=== PATIENT | male | born 1950 | race Caucasian/White ===

== ENCOUNTER 2017-04-03 11:07 | Emergency (ER) | payer MEDICARE ==
--- NOTE | ~2017-04-03 | CT4 ---
[facility] A Service of [facility] RADIOLOGY TEXT RESULTS PATIENT: ALICIA WALTON LOCATION: [facility] : 46 UNIT #: [id number] AGE: [address]: Rey Muñoz MD SEX: M ORDER DR: [id number] [place] [id number] E MR#: [id number] Acc #: [id number] NAME: ALICIA WALTON. : 1950 SEX: M STUDY DATE/TIME: 04/03/2017 13:42 UNIT: SED ROOM: STUDY DESCRIPTION: CT Abd and Pelv Wo Cont Attending Physician: Rey Muñoz M.D. Ordering Physician: Rey Muñoz M.D. Primary Care Physician: Noemi Flores M.D. MEDICAL IMAGING REPORT This report is preliminary unless electronic signature is present. EXAM CT abdomen and pelvis without contrast. INDICATIONS Nausea and abdominal pain since last night. TECHNIQUE CT of the abdomen and pelvis was performed without contrast. Coronal and sagittal reformatted images were obtained. This CT exam was performed with one or more of the following radiation dose reduction techniques: automatic exposure control, adjustment of mA and/or kV according to patient size, and iterative reconstruction. COMPARISON No comparisons are available. FINDINGS There is minimal atelectasis/scar in the lung bases. The liver, gallbladder, and spleen are unremarkable. Tiny nonobstructing stone, upper pole, left kidney. Cyst in the left kidney. The right kidney demonstrates moderate hydronephrosis. Large exophytic cyst arising from the right kidney. Smaller intrarenal cyst, upper pole, right kidney. 5-mm obstructing stone, mid/distal right ureter. The adrenal glands are unremarkable. Pancreas is unremarkable. PELVIS: There are scattered diverticula in the colon. The appendix is normal. Urinary bladder is unremarkable. Bone windows are unremarkable. IMPRESSION 5-mm obstructing stone in the mid/distal right ureter with moderate right-sided hydronephrosis. [facility] A Service of [facility] RADIOLOGY TEXT RESULTS PATIENT: ALICIA WALTON LOCATION: SED : 46 UNIT #: [id number] AGE: [address]: Rey Muñoz MD SEX: M ORDER DR: Dictated by... Brayan Graves M.D. THIS IS AN ELECTRONICALLY VERIFIED REPORT Brayan Graves M.D. at 04/04/2017 7:17 AM XIN/yamini TD: 04/03/2017 18:01 JOB #: [id number] MEDICAL IMAGING REPORT Page 1 of 1
[~2017-04-03 11:07] MED LIST: ASA; ASPIRIN PO; ASPIRIN81 M2 PO; CIPRO PO; FISH OIL 1,2001 EAC4 PO; MULTIPLE VITAMI1 T11 PO; NIACIN500 M2 PO; PERCOCET5/325; PYRIDIUM PO; SIMCOR 500-21 BOTTLE; SIMCOR 500-21 BOTTLE PO; SIMCOR PO; SIMVASTATIN20 MG PO; ZETIA PO
[2017-04-03 11:50] LABS: URINE APPEARANCE CLEAR; URINE BILIRUBIN NEG (NEG); URINE COLOR YELLOW; URINE GLUCOSE NEG (NORM); URINE KETONE 1+ (NEG); URINE LEUKOCYTE ESTERASE NEG (NEG); URINE NITRATE NEG (NEG); URINE PH 7.5 (5-8); URINE SPECIFIC GRAVITY 1.025 (1.003-1.035); URINE UROBILINOGEN 0.2 MG/DL (NORM)
[2017-04-03 11:52] LABS: BASOPHIL% 0.2 % (0-2.5); HEMATOCRIT 47.2 % (38.0-50.0); HEMOGLOBIN 15.8 gm/dL (13.0-16.0); LYMPHOCYTE# 0.8 X10e3 (1.0-3.5); LYMPHOCYTE% 9.6 % (17.0-45.0); MEAN CELL VOLUME 89.2 FL (83-96); MEAN CORPUSCULAR HEMOGLOBIN 29.8 PG (28-34); MEAN CORPUSCULAR HGB CONC 33.4 g/dL (30-36); MEAN PLATELET VOLUME 8.6 FL (6.5-11.5); MONOCYTE# 0.5 X10e3 (0-1.0); MONOCYTE% 6.1 % (3.0-12.0); NEUTROPHIL# 7.1 X10e3 (1.5-7.1); NEUTROPHIL% 84.1 % (40-75); PLATELET COUNT 154 X10e3 (140-420); RED CELL DISTRIBUTION WIDTH 13.4 % (11.0-15.5); WHITE BLOOD COUNT 8.4 X10e3 (4.0-10.5)
[2017-04-03 11:53] LABS: MICRO INDICATED? NO; URINE BLOOD NEG (NEG); URINE PROTEIN NEG (NEG)
[2017-04-03 11:53] LABS: DIFF IND NO
[2017-04-03 12:10] LABS: ALBUMIN SERUM 4.5 g/dL (3.5-5.0); BILIRUBIN, DIRECT 0.2 mg/dL (0.0-0.2); BILIRUBIN,INDIRECT 1.3 mg/dL (0.0-0.9); BILIRUBIN,TOTAL 1.5 mg/dL (0.2-2.0); BUN/CREATININE RATIO 11.76; CALCIUM SERUM 9.9 mg/dL (8.4-10.2); CREATININE SERUM 1.7 mg/dL (0.6-1.4); GLOM FILT RATE Estimated 40.6 mL/min (>60); PROTEIN TOTAL SERUM 7.5 g/dL (6.0-8.3)
== END 2017-04-03 14:42 | disposition home or self-care (01) ==
LOC: SED 11:07
PROVIDERS: Emergency Medicine
DX: N13.2 Hydronephrosis with renal and ureteral calculous obstruction (principal); E86.0 Dehydration; Z98.890 Other specified postprocedural states; Z79.82 Long term (current) use of aspirin
CPT/HCPCS: 36415; 74176; 80048; 80076; 81003; 82150; 83690; 85025; 96361; 96374; 96375; 99284; J2270; J2405

== ENCOUNTER 2017-04-25 11:11 | Emergency (ER) | payer MEDICARE ==
--- NOTE | ~2017-04-25 | CT4 ---
[facility] A Service of [facility] RADIOLOGY TEXT RESULTS PATIENT: ALICIA WALTON LOCATION: SED : 46 UNIT #: [id number] AGE: [address]: Jessi Swanson MD SEX: M ORDER DR: [id number] [address] [address] [id number] E MR#: [id number] Acc #: [id number] NAME: ALICIA WALTON. : 1950 SEX: M STUDY DATE/TIME: 04/25/2017 UNIT: SED ROOM: STUDY DESCRIPTION: CT Abd and Pelv Wo Cont Attending Physician: Jessi Swanson M.D. Ordering Physician: Jessi Swanson M.D. Primary Care Physician: Noemi Flores M.D. MEDICAL IMAGING REPORT This report is preliminary unless electronic signature is present. EXAM CT abdomen and pelvis without contrast 04/25/2017 1139 hours HISTORY 66-year-old man complaining of frequent urination since yesterday. History of removal of right-sided ureteral stones, April 18. Blood in urine. Elevated creatinine level. COMPARISON CT abdomen and pelvis 04/03/2017 TECHNIQUE Helical noncontrasted images were obtained from the lung bases through the pubic symphysis without oral or intravenous contrast. Sagittal and coronal reconstructions were performed. Total exam DLP is 873 mGy-cm. This CT exam was performed with one or more of the following radiation dose reduction techniques: automatic exposure control, adjustment of mA and/or kV according to patient size, and iterative reconstruction. FINDINGS Images through the lung bases are clear. There are no effusions. The distal esophagus is normal. Noncontrasted images through the abdomen demonstrate calcified granulomata in the liver and spleen. There are no focal liver lesions. The pancreas, gallbladder, bile ducts are normal. The adrenal glands are normal. The kidneys demonstrate small cortical cysts bilaterally which are unchanged. In the anterior mid-right kidney where there was previously a low-density cyst measuring 4 cm and 1 Hounsfield unit, there is a rounded lesion that appears isodense to the liver with density measurement of 19 Hounsfield units that suggests interval hemorrhage or infection with production of proteinaceous material. The dilatation of the right renal STS. [facility] A Service of [facility] RADIOLOGY TEXT RESULTS PATIENT: ALICIA WALTON LOCATION: [facility] : 46 UNIT #: [id number] AGE: [address]: Jessi Swanson MD SEX: M ORDER DR: pelvis and right ureter has resolved. There is no residual right or left ureteral calculus. The bladder is normal. The stomach and small bowel are unremarkable. The appendix is normal. There is no colonic wall thickening. CT pelvis demonstrates a moderately well distended bladder without evidence of wall thickening. Seminal vesicles and prostate are unchanged. IMPRESSION 1. Previous right ureteral stone is no longer seen. There are no intrarenal calculi and no residual dilatation of the right renal collecting system. 2. The patient has small renal cortical cysts bilaterally that are unchanged. 3. The largest cyst seen in the anterolateral mid-right kidney has changed since 04/03/2017. It measures slightly smaller, but the density is increased to 19 Hounsfield units from 1 Hounsfield unit with some internal debris present. Question whether this represents an infected cyst or residua from hemorrhage into the cyst. 4. The bladder appears normal. STAT * RESULT Dictated by... Yanci Saldana M.D. THIS IS AN ELECTRONICALLY VERIFIED REPORT Yanci Saldana M.D. at 04/25/2017 2:31 PM Milena TD: 04/25/2017 13:27 JOB #: [id number] MEDICAL IMAGING REPORT Page 1 of 1
[2017-04-25 11:24] LABS: URINE SOURCE CLEAN CATCH
[2017-04-25 11:26] LABS: URINE APPEARANCE CLEAR; URINE BILIRUBIN NEG (NEG); URINE BLOOD NEG (NEG); URINE COLOR YELLOW; URINE GLUCOSE NEG (NORM); URINE KETONE NEG (NEG); URINE LEUKOCYTE ESTERASE NEG (NEG); URINE NITRATE NEG (NEG); URINE PH 6.5 (5-8); URINE PROTEIN NEG (NEG); URINE SPECIFIC GRAVITY <=1.005 (1.003-1.035); URINE UROBILINOGEN 0.2 MG/DL (NORM)
[2017-04-25 11:27] LABS: MICRO INDICATED? NO
[2017-04-25 11:47] LABS: BASOPHIL# 0.1 X10e3 (0-0.3); BASOPHIL% 1.2 % (0-2.5); EOSINOPHIL# 0.1 X10e3 (0-0.7); EOSINOPHIL% 1.2 % (0.0-7.0); HEMATOCRIT 45.4 % (38.0-50.0); HEMOGLOBIN 15.2 gm/dL (13.0-16.0); LYMPHOCYTE# 1.8 X10e3 (1.0-3.5); LYMPHOCYTE% 30.8 % (17.0-45.0); MEAN CELL VOLUME 88.3 FL (83-96); MEAN CORPUSCULAR HEMOGLOBIN 29.5 PG (28-34); MEAN CORPUSCULAR HGB CONC 33.4 g/dL (30-36); MEAN PLATELET VOLUME 8.9 FL (6.5-11.5); MONOCYTE# 0.4 X10e3 (0-1.0); MONOCYTE% 7.1 % (3.0-12.0); NEUTROPHIL# 3.6 X10e3 (1.5-7.1); NEUTROPHIL% 59.7 % (40-75); PLATELET COUNT 301 X10e3 (140-420); RED BLOOD COUNT 5.14 X10e (3.90-5.60); RED CELL DISTRIBUTION WIDTH 13.1 % (11.0-15.5)
[2017-04-25 11:52] LABS: DIFF IND NO
[2017-04-25 12:04] LABS: ALBUMIN SERUM 4.3 g/dL (3.5-5.0); ALKALINE PHOSPHATASE 99 U/L (32-92); ALT (SGPT) 24 U/L (10-40); AST (SGOT) 24 U/L (10-42); BILIRUBIN,TOTAL 0.5 mg/dL (0.2-2.0); BLOOD UREA NITROGEN 13 mg/dL (9-23); CALCIUM SERUM 9.4 mg/dL (8.4-10.2); CARBON DIOXIDE 28 mmol/L (22-31); CHLORIDE 100 mmol/L (100-111); GLUCOSE FASTING 93 mg/dL (70-110); POTASSIUM 4.1 mmol/L (3.5-5.1); PROTEIN TOTAL SERUM 7.6 g/dL (6.0-8.3); SODIUM 137 mmol/L (135-145)
[2017-04-25 12:06] LABS: BILIRUBIN, DIRECT <0.1 mg/dL (0.0-0.2); BILIRUBIN,INDIRECT 0.4 mg/dL (0.0-0.9)
== END 2017-04-25 13:48 | disposition home or self-care (01) ==
LOC: SED 11:11
PROVIDERS: Student in an Organized Health Care Education/Training Program
DX: R35.0 Frequency of micturition (principal); E78.00 Pure hypercholesterolemia, unspecified; Z87.442 Personal history of urinary calculi; Z79.82 Long term (current) use of aspirin; Z79.899 Other long term (current) drug therapy
CPT/HCPCS: 36415; 74176; 80048; 80076; 81003; 85025; 99284